=== PATIENT | female | born 1950 | race Caucasian/White ===

== ENCOUNTER → 2016-07-17 | Day surgery (SDC) | payer MEDICARE, OTHER ==
[~2016-07-17] VITALS: Ht 149.9 cm; Wt 60.5 kg
[~2016-07-17] MED LIST: *MEPERIDINE 25 MG INJ VIAL PERIprocedural Use ONLY ONE; *RESP: ALBUTEROL 2.5 MG/3 ML NEB (PRN) PERIprocedural Use ONLY NEB ONE; *morphine SULFATE 8 MG/ML PERIprocedure ONLY ONE; ACETAMINOPHEN 1000 MG/100 ML VIAL IV ONE; AMLO5TAB2 PO; CHLORHEXIDINE GLUCONATE 4% SOLN 120 ML BTL TOP SCH; CYCL1TAB29 PO; DO NOT ADM ANY ANTICOAGULANT DRUGS XX PRN; FENT50DI TD; GENTAMICIN SULFATE 80 MG/2 ML VIAL ONE; HYDR-3533 PO; HYDR-3583 PO; INSULIN HUMAN REGULAR 1,000 UNITS/10 ML VIAL SQ PRN; KETOROLAC TROMETHAMINE 30 MG/ML (IVP) VIAL IVP ONE; LACTATED RINGER'S 1000 ML IV SCH; LISI10TA3 PO; LORA-474 PO; LORA-475 PO; LORazepam 1 MG TAB PO ONE; METOPROLOL TARTRATE 25 MG TAB PO PRN; MIDAZOLAM HCL 2 MG/2 ML VIAL ONE; MORPHINE SULFATE 4 MG/ML INJ IV PUSH PRN; ONDANSETRON HCL 4 MG/2 ML VIAL IV PRN; ONDANSETRON HCL 4 MG/2 ML VIAL IV PUSH ONE; PAXI10TA2 PO; PROPOFOL 200 MG/20 ML AMP IV ONE; SODIUM CHLORID 0.9% 500 ML IV SCH; SODIUM CHLORIDE 0.9% FLUSH 5 ML FLUSH IVF PRN; SODIUM CHLORIDE 0.9% FLUSH 5 ML FLUSH IVF SCH; VANCOMYCIN 1000 MG/NS 250 ML (for <70 kg) IV SCH; ceFAZolin 2 GM PREMIX 50 ML IV SCH; fentaNYL CITRATE 250 MCG/5 ML AMP ONE; oxyCODONE/ACETAMINOPHEN 5 MG/325 MG TAB PO PRN
[2016-07-17 12:52] VITALS: BP 144/70; PULSE 80; RESP 20; TEMP 98.3; O2SAT 95
[2016-07-17 13:06] LABS: AUTOMATED NEUTROPHIL # 14.8 TH/MM3 (1.8-7.7); BASOPHIL # 0.1 TH/MM3 (0-0.2); BASOPHIL % 0.6 % (0.0-2.0); EOSINOPHIL # 0.4 TH/MM3 (0-0.4); EOSINOPHIL % 1.7 % (0.0-4.0); HEMATOCRIT 40.8 % (35.0-46.0); LYMPH % 19.6 % (9.0-44.0); LYMPHOCYTE # 4.1 TH/MM3 (1.0-4.8); MEAN CELL VOLUME 87.6 FL (80.0-100.0); MEAN CORPUSCULAR HEMOGLOBIN 29.1 PG (27.0-34.0); MEAN CORPUSCULAR HGB CONC 33.2 % (32.0-36.0); MONO % 8.2 % (0.0-8.0); NEUT % 69.9 % (16.0-70.0); PLATELET COUNT 442 TH/MM3 (150-450); RED BLOOD COUNT 4.65 MIL/MM3 (4.00-5.30); RED CELL DISTRIBUTION WIDTH 14.2 % (11.6-17.2); WHITE BLOOD COUNT 21.1 TH/MM3 (4.0-11.0)
[2016-07-17 13:08] LABS: HEMO FLAGS AUTO DIFF
[2016-07-17 13:57] LABS: PLATELET ESTIMATE SMEAR NORMAL (NORMAL); PLATELET MORPHOLOGY CLUMPED (NORMAL); SCAN/DIFF AUTO DIFF CONFIRMED
--- NOTE | 2016-07-17 17:09 | RADRPT ---
EXAM DATE/TIME: 07/17/2016 16:44 [place] COMPARISON: No previous studies available for comparison. INDICATIONS : ORIF Right wrist fractuce. MEDICAL HISTORY : None. SURGICAL HISTORY : None. ENCOUNTER: Initial ACUITY: 1 day PAIN SCORE: Non-responsive. LOCATION: Right wrist. FINDINGS: 2 intraoperative spot images of the right wrist. Internal fixation plates are seen across radius and ulna shaft fractures. Alignment near-anatomic. CONCLUSION: Surgical hardware in place in the distal radius and ulna. Franki Shah MD on July 17, 2016 at 17:06 Board Certified Radiologist. This report was verified electronically.
--- NOTE | 2016-07-17 17:13 | PD.OP ---
cc: Mukesh Marley Jr., MD Operative Report Date of Surgery: Jul 17, 2016 Preoperative Diagnosis: Right radius and ulna shaft fracture Postoperative Diagnosis: Same Procedure: #1 Open reduction internal fixation right radial shaft #2 open reduction internal fixation right ulnar shaft Anesthesia: Gen. Surgeon: Mukesh Marley Customer Service Receptionist(s): Casa Powers PA-C The surgical procedure was assisted by my physician executive staff assistant. My physician executive staff assistant presence was necessary throughout this case for the manipulation and positioning of the surgical extremity. My physician executive staff assistant was assisting me throughout the duration of this procedure. The skill set of a physician executive staff assistant was medically necessary to complete this procedure. During the surgical case, the surgical instrument repair specialist was working at the back table and the physician executive staff assistant was directly assisting me. Resident Surgeon: None Operation and Findings: Patient was seen and evaluated preoperatively and found to have closed both bone forearm fracture. Disciussion of risk and benefits including bleeding, infection, injury to arteries, nerves, and blood vessels, weakness and numbness of hand, and tendon rupture. Informed consent was obtained. Patient received IV antibiotics prior to incision. Timeout procedure was performed. Operative extremity was prepped with alcohol followed by Hibiclens and draped usual sterile fashion. A standard volar maryjo approach to the radial shaft was utilized. Dissection was taken down between the brachioradialis and FCR distally and brachioradialis and FDS proximally. Care was taken not to injure the superficial branch of the radial nerve during this course under brachioradialiis. The fracture site was now visualized and the fracture site was sharply debrided. Traction was applied , fracture fragments were manipulated to achieve excellent reduction. A Synthes 2.7 LCDC plate with bone clamps were used for provisional fixation. Fluoroscopy confirmed appropriate alignment of fracture. One screw was placed eccentrically on either side of the fracture to provide compression at the fracture site. Fluoroscopy confirmed appropriate alignment of fracture with well -placed hardware. More 2.7 screws were now placed distally and proximally. Screws were predrilled and measured for appropriate length. Final fluoroscopy revealed excellent of fracture with well-placed hardware. A standard medial incision to the distal ulnar shaft was done, between ECU and FCU using the palpable ulna styloid as landmark. Dissection taken down between the extensor carpi ulnaris and flexor carpi ulnaris while taking care not to injure the dorsal sensory branch of the ulnar nerve. The fracture site was visualized and the bone ends were sharply debrided. Fracture fragments were manipulated to achieve excellent reduction. K wire was used to hold provisional fixation. Fluoroscopy confirmed appropriate alignment of the fracture. A Synthes 2.7 LCDC was selected. The plate was provisionally fixed to bone with K wires. 2.7 mm cortical screws was used to compress the plate to bone proximally and distally. Fluoroscopy confirmed appropriate alignment of the fracture with well-placed hardware. Multiple 2.7mm screws were now placed distally. Screws were predrilled and measured for appropriate length. Additional screws were placed in the shaft prior to K wire removal. Final fluoroscopy revealed excellent reduction of the fracture with well-placed hardware. Both wounds were thoroughly irrigated with saline. Subcutaneous test tissue was closed with 3-0 Vicryl and skin with evelyn. Compartments were soft. Sterile dressing was applied, Xeroform, 4 x 4, soft roll and a well-padded soft dressing. Patient was awakened and transferred to recovery room in stable condition. There were no complications. POSTP-OP PLAN OF ACTIVITY Antiocoagulation: SCD Weight bearing status: NWB RUE PT/OT: Encourage elbow and fingers range of motion Dressing: Do not remove splints/cast. Future procedure planned: none Dispo: expected discharge HOME PACU Mukesh Marley Jr., MD Jul 17, 2016 17:13
[2016-07-17 19:00] VITALS: BP 152/66; PULSE 102; RESP 18; TEMP 98.4; O2SAT 94
--- NOTE | 2016-07-18 06:44 | EKG ---
Date Performed: 07/17/2016 Time Performed: 11:50:10 PTAGE: 65 years EKG: Sinus rhythm INDETERMINATE AXIS RIGHT BUNDLE BRANCH BLOCK ABNORMAL ECG NO PREVIOUS TRACING DOCTOR: Ethan Newby Interpretating Date/Time 07/18/2016 06:42:28
== END | disposition home or self-care (01) ==
LOC: HSDC 11:10
PROVIDERS: ATTEND Orthopaedic Surgery
DX: S52.201A Unspecified fracture of shaft of right ulna, initial encounter for closed fracture (principal); S52.301A Unspecified fracture of shaft of right radius, initial encounter for closed fracture; I10 Essential (primary) hypertension; W19.XXXA Unspecified fall, initial encounter
CPT/HCPCS: 01830; 25575; 73100; 76000; 85025; 86850; 86900; 86901; 93005; 94664; C1713; J0131; J0690; J1580; J1885; J2175; J2250; J2270; J2405; J3010; J3370; J7050; J7613